=== PATIENT | male | born 1955 | race Caucasian/White ===

== ENCOUNTER 2016-11-17 23:42 | Emergency (ER) | payer BC, OTHER ==
[~2016-11-17] VITALS: Ht 182.9 cm; Wt 100.0 kg
[2016-11-17 23:55] VITALS: BP 106/63; PULSE 90; RESP 20; TEMP 98.8; O2SAT 100
[2016-11-17] MEDS ORDERED: LEVO-86 PO (23:58)
[2016-11-17] MEDS ORDERED: LISI10TA3 PO (23:58)
[2016-11-17] MEDS ORDERED: METH2.5T PO (23:58)
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
[2016-11-18] MEDS ORDERED: MORPHINE SULFATE 4 MG/ML INJ IV PUSH ONE (00:15)
[2016-11-18] MEDS ORDERED: ONDANSETRON HCL 4 MG/2 ML VIAL IV PUSH ONE (00:15)
[2016-11-18] MEDS ORDERED: TETANUS/DIPHTHERIA TOXOID ADULT 0.5 ML VIAL IM ONE (00:15)
[2016-11-18 00:45] VITALS: RESP 20
[2016-11-18] MEDS ORDERED: PERC5TAB12 PO (01:21)
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
[2016-11-18 02:37] VITALS: BP 105/55
== END 2016-11-18 02:39 | disposition home or self-care (01) ==
LOC: NEPC 23:42
DX: S82.842A Displaced bimalleolar fracture of left lower leg, initial encounter for closed fracture (principal); I10 Essential (primary) hypertension; E07.9 Disorder of thyroid, unspecified; Z23 Encounter for immunization; Z87.39 Personal history of other diseases of the musculoskeletal system and connective tissue; W18.39XA Other fall on same level, initial encounter
CPT/HCPCS: 29515; 73610; 90471; 90714; 96374; 96375; 99283; E0113; J2270; J2405